=== PATIENT | male | born 1980 | race Caucasian/White ===

== ENCOUNTER 2017-07-29 21:03 | Emergency (ER) | payer OTHER ==
[2017-07-29] MEDS ORDERED: HYDROmorphone 1 MG/ML Syringe ONE ×3 (21:08→22:33)
[2017-07-29] MEDS ORDERED: Ondansetron 4 MG/2 ML SDV ONE (21:13)
[2017-07-29 21:27] LABS: CHLORIDE,CL 98 mmol/L (98-107); SODIUM,NA 133 mmol/L (136-145)
--- NOTE | 2017-08-10 21:25 | ER ---
Trauma Code HISTORY OF PRESENT ILLNESS: Donis is a 36-year-old who was brought in from home via ambulance after falling 20 feet from a ladder while trying to cut a tree back. The patient states that he fell right on his ankle bilaterally and denies loss of consciousness. Denies any neck pain. Denies lower back pain. Complains mainly of left ankle pain with obvious deformation. PHYSICAL EXAMINATION: GENERAL: Initial survey revealed normocephalic, atraumatic, intoxicated male. Answers questions appropriately. HEENT: PERRLA. Extraocular movements intact with no obvious head injuries. Denies head trauma. NECK: Denies neck trauma. Thyroid was in the midline with no deviation. LUNGS: Bilateral breath sounds were clear to auscultation. No rales, rhonchi, or wheezing. Trachea within the midline. HEART: Regular rate and rhythm. No murmurs. CHEST: Symmetrical expansion with no pain to palpation. ABDOMEN: Soft and nontender. Good bowel sounds. No masses. EXTREMITIES: Left lower extremity revealed obvious left leg injury. EMERGENCY DEPARTMENT COURSE/ASSESSMENT: X-rays at this time revealed C-spine was negative. A CT of the C-spine was obtained, which was also negative. Lumbar and transabdominal showed no deformities. Ankle revealed left fibula fracture with a butterfly piece in midshaft, also tibial malleolus fracture with obvious deformity of the joint. At this time spoke to Orthopod, and we will transfer to [facility] for OR for Orthopedics and Trauma. KLARISSA Cedeno MD /[id number]
== END 2017-07-29 23:25 ==
LOC: LL.ED 21:03
DX: S82.52XA Displaced fracture of medial malleolus of left tibia, initial encounter for closed fracture (principal); S82.832A Other fracture of upper and lower end of left fibula, initial encounter for closed fracture; W11.XXXA Fall on and from ladder, initial encounter
CPT/HCPCS: 36415; 71010; 72040; 72100; 72125; 73600; 80048; 80305; 81001; 85025; 85610; 85730; 96361; 96374; 96375; 96376; 99291; 99292; G0390; G0480; J1170; J2405

== ENCOUNTER 2020-02-22 15:33 | Emergency (ER) | payer BC ==
[2020-02-22 15:40] VITALS: BP 132/84; PULSE 86
[2020-02-22] MEDS ORDERED: methylPREDNISolone Sodium Succinate 125 MG/2 ML SDV IM ONE (15:59)
--- NOTE | 2020-02-22 16:03 | EDM.PDOC ---
ED HPI GENERAL MEDICAL PROBLEM - General Chief Complaint: Skin Complaint Stated Complaint: hives Time Seen by Provider: 02/22/20 15:58 Source of Information: Reports: Patient History Limitations: Reports: No Limitations - History of Present Illness INITIAL COMMENTS - FREE TEXT/NARRATIVE: Pt with hives for past several days Pt started on Celexa several days ago Has had hives since then No other new exposures Did take his Celexa today Has taken Benadryl Onset: Gradual Duration: Day(s): Location: Reports: Generalized Treatments SUTURE GAUGER: Reports: Other (see below) Other Treatments SUTURE GAUGER: BENADRYL - Related Data Allergies Allergy/AdvReac Type Severity Reaction Status Date / Time No Known Allergies Allergy Verified 08/30/16 18:38 Home Meds: Home Meds metFORMIN [Glucophage] 250 mg PO BIDMEALS 02/22/20 [History] Past Medical History - Past Health History Medical/Surgical History: Denies Medical/Surgical History Gastrointestinal History: Reports: GERD Neurological History: Reports: Other (See Below) Other Neuro History: TBI Psychiatric History: Reports: PTSD - Past Surgical History GI Surgical History: Reports: Jay Fundoplication Social & Family History - Caffeine Use Caffeine Use: Reports: Coffee Caffeine Use Comment: Many cups per day - Living Situation & Occupation Living situation: Reports: , with Significant Other Occupation: Employed ED ROS GENERAL - Review of Systems Review Of Systems: See Below Constitutional: Reports: No Symptoms HEENT: Reports: No Symptoms Respiratory: Reports: No Symptoms Cardiovascular: Reports: No Symptoms GI/Abdominal: Reports: No Symptoms Musculoskeletal: Reports: No Symptoms Skin: Reports: Urticaria ED EXAM, SKIN/RASH Exam: See Below Exam Limited By: No Limitations General Appearance: Mild Distress Respiratory/Chest: Lungs Clear Skin: Other (Urticaria lesions on extremities and trunk No open areas) Course - Vital Signs Last Recorded V/S: Last Vital Signs Temp 97.8 F 02/22/20 15:34 Pulse 86 02/22/20 15:34 Resp 18 02/22/20 15:34 BP 132/84 02/22/20 15:34 Pulse Ox 96 02/22/20 15:34 - Orders/Labs/Meds Orders: Active Orders 24 hr Category Date Time Status methylPREDNISolone Sod Succ [Solu-MEDROL] Med 02/22/20 15:59 Once 125 mg IM ONETIME ONE Medication Orders Methylprednisolone Sodium Succinate (Solu-Medrol) 125 mg IM ONETIME ONE Stop: 02/22/20 16:00 Meds: Medications Generic Name Dose Route Start Last Admin Trade Name Kaveh ARSHAD Reason Stop Dose Admin Methylprednisolone Sodium Succinate 125 mg 02/22/20 15:59 Solu-Medrol IM 02/22/20 16:00 ONETIME ONE - Re-Assessments/Exams Free Text/Narrative Re-Assessment/Exam: 02/22/20 16:01 Pt given Solu-medrol 125 mg IM in ER Departure - Departure Time of Disposition: 16:30 Disposition: Home, Self-Care 01 Clinical Impression: Urticaria, Drug-induced urticaria - Discharge Information *PRESCRIPTION DRUG MONITORING PROGRAM REVIEWED*: Not Applicable *COPY OF PRESCRIPTION DRUG MONITORING REPORT IN PATIENT LUCI: Not Applicable Instructions: Hives Additional Instructions: Benadryl as needed Stop Celexa Follow up in clinic Sepsis Event Note - Evaluation Sepsis Screening Result: No Definite Risk - Focused Exam Vital Signs: Vital Signs Temp Pulse Resp BP Pulse Ox 02/22/20 15:34 97.8 F 86 18 132/84 96 Date Exam was Performed: 02/22/20 Time Exam was Performed: 15:59 - My Orders Last 24 Hours: My Active Orders 02/22/20 15:59 methylPREDNISolone Sod Succ [Solu-MEDROL] 125 mg IM ONETIME ONE - Assessment/Plan Last 24 Hours: My Active Orders 02/22/20 15:59 methylPREDNISolone Sod Succ [Solu-MEDROL] 125 mg IM ONETIME ONE
== END 2020-02-22 16:20 | disposition home or self-care (01) ==
LOC: LL.ED 15:33
DX: L50.0 Allergic urticaria (principal); T43.225A Adverse effect of selective serotonin reuptake inhibitors, initial encounter
CPT/HCPCS: 96372; 99283; J2930